=== PATIENT | male | born 1965 | race Caucasian/White ===

== ENCOUNTER 2022-06-29 15:15 | Emergency (ER) | payer OTHER ==
[~2022-06-29] VITALS: Ht 165.1 cm; Wt 86.0 kg
[2022-06-29] MEDS ORDERED: IBUPROFEN 600MG TABLET PO ONE (16:00)
[2022-06-29] MEDS ORDERED: LIDOCAINE 5% PATCH TOP SCH (16:00)
[2022-06-29 16:15] VITALS: BP 103/58
== END 2022-06-29 16:21 | disposition home or self-care (01) ==
LOC: ER 15:15
DX: M54.50 Low back pain, unspecified (principal)
CPT/HCPCS: 99283

== ENCOUNTER 2023-02-09 08:40 | Emergency (ER) | payer OTHER ==
[~2023-02-09] VITALS: Ht 170.2 cm; Wt 77.1 kg
[2023-02-09 09:01] VITALS: O2SAT 95
[2023-02-09] MEDS ORDERED: CYCL5TAB MT (09:19)
[2023-02-09] MEDS ORDERED: IBUP-2030 MT (09:19)
[2023-02-09] MEDS ORDERED: KETOROLAC 60MG/2ML VIAL IM ONE (09:30)
[2023-02-09 09:38] VITALS: BP 126/84; PULSE 75; RESP 18; TEMP 98.6
== END 2023-02-09 09:39 | disposition home or self-care (01) ==
LOC: ER 08:47
DX: M54.50 Low back pain, unspecified (principal); Z98.890 Other specified postprocedural states
CPT/HCPCS: 99283; 96372; J1885

== ENCOUNTER 2023-11-23 12:36 | Emergency (ER) | payer OTHER, MEDICAID ==
[~2023-11-23] VITALS: Ht 170.2 cm; Wt 95.0 kg
[~2023-11-23 12:36] MED LIST: CYCL5TAB MT; IBUP-2030 MT
[2023-11-23 12:44] VITALS: BP 129/68; PULSE 96; RESP 18; TEMP 98.4; O2SAT 95
== END 2023-11-23 15:29 | disposition home or self-care (01) ==
LOC: ER 12:36
DX: M79.89 Other specified soft tissue disorders (principal); Z98.890 Other specified postprocedural states
CPT/HCPCS: 71045; 73610; 73630; 93971; 99284